=== PATIENT | female | born 1945 | race Caucasian/White ===

== ENCOUNTER → 2017-01-07 10:39 | Outpatient (CLI) | payer MEDICARE, OTHER ==
--- NOTE | ~2017-01-07 | EEG ---
PATIENT:LEELEE MIJARES DATE OF SERVICE: 01/07/17 MEDICAL RECORD: [id number] DATE OF : 45 LOCATION: [facility] ADMISSION DATE: 01/07/17 REFERRING PHYSICIAN: INTERPRETING PHYSICIAN: SANDEEP [address] MD DATE OF SERVICE: 01/07/2017 Referred by myself as an outpatient. ELECTROENCEPHALOGRAM NUMBER: [id number] DATE OF EXAMINATION: 01/07/2017 at 11:30 a.m. TECHNICAL DATA: This electroencephalographic recording consisted of approximately 20 minutes of data collection utilizing the international 10/20 system of electrode placement and both referential and non-referential montages. Sixteen channels of electrocerebral recording are accompanied by a 17th channel dedicated to the electrocardiographic rhythm and 2 channels of electromyographic recording. Recording is performed in the awake and drowsy states utilizing activation by hyperventilation and photic stimulation. ELECTROENCEPHALOGRAPHIC DATA: The awake state comprises approximately 80% of the recorded electrocerebral activity. Electromyographic artifact is prominent and rapid eye movements are seen. The posterior dominant background consists of a well-developed, symmetric, rhythmic, waxing and waning alpha activity of 9-10 Hz, which is suppressed by eye opening. The drowsy state comprises the remaining portion of the recorded electrocerebral activity. Electromyographic artifact is diminished and rapid eye movements are not seen. No abnormal or focal slowing is identified. No epileptiform discharges are seen. Hyperventilation and photic stimulation induced no abnormal change in the recorded electrocerebral activity. INTERPRETATION: Normal (awake and drowsy). This is a normal electroencephalographic recording. TRANSINT:[id number] Voice Confirmation ID: [id number] DOCUMENT ID: [id number] [address] MD CC: [id number] DICTATION DATE: 01/08/17706 INSECTICIDE SPRAYER: 01/08/17 0816 DEP CLI 01/07/17 [facility] [address] [place] [address]
[2017-01-07 12:51] LABS: ALBUMIN 3.7 g/dL (3.4-5.0); ANION GAP 8.2 mmol/L (8-16); BILIRUBIN - TOTAL 0.34 mg/dL (0.2-1.3); CALCIUM 9.3 mg/dL (8.5-10.1); CARBON DIOXIDE 34.4 mmol/L (21.0-32.0); CREATININE - SERUM 0.9 mg/dL (0.6-1.3); POTASSIUM - SERUM 3.6 mmol/L (3.5-5.1); PROTEIN - SERUM 7.3 g/dL (6.4-8.2)
[2017-01-08 09:17] LABS: FOLATE (FOLIC ACID) - SERUM >20.0 ng/mL (>3.0)
[2017-01-08 12:17] LABS: ANA REFLEX - DIRECT Negative (Negative)
== END | disposition home or self-care (01) ==
LOC: D.MRI 09:00 → D.CN 10:00
PROVIDERS: Psychiatry & Neurology Neurology
DX: F41.1 Generalized anxiety disorder (principal); E78.2 Mixed hyperlipidemia; I10 Essential (primary) hypertension; E87.1 Hypo-osmolality and hyponatremia

== ENCOUNTER → 2017-07-02 16:20 | Outpatient (CLI) | payer MEDICARE, OTHER | END | disposition home or self-care (01) | LOC: D.MAMMO 16:00 | DX: Z12.31 Encounter for screening mammogram for malignant neoplasm of breast (principal) ==

== ENCOUNTER → 2018-01-07 09:39 | Outpatient (CLI) | payer MEDICARE, OTHER | END | disposition home or self-care (01) | LOC: D.RAD 09:39 | DX: K21.9 Gastro-esophageal reflux disease without esophagitis (principal) ==

== ENCOUNTER → 2018-02-12 09:57 | Outpatient (CLI) | payer MEDICARE, OTHER | END | disposition home or self-care (01) | LOC: D.RAD 09:57 → D.US 10:30 → D.NM 11:15 | DX: K21.0 Gastro-esophageal reflux disease with esophagitis (principal); K22.2 Esophageal obstruction; R13.10 Dysphagia, unspecified; K31.89 Other diseases of stomach and duodenum; R14.2 Eructation ==